=== PATIENT | male | born 1995 | race Hispanic/Latino ===

== ENCOUNTER 2017-09-11 09:29 | Observation (INO) | payer SELFPAY ==
[~2017-09-11] VITALS: Ht 182.9 cm; Wt 121.1 kg
[2017-09-11] MEDS ORDERED: SODIUM CHLORIDE 0.9% 1000ML 1,000 ML IV STA (09:57)
[2017-09-11] MEDS ORDERED: SODIUM CHLORIDE 0.9% 1000ML 1,000 ML IV SCH ×2 (12:13→12:15)
[2017-09-11] MEDS ORDERED: SODIUM CHLORIDE FLUSH 10 ML SYR INJ PRN (12:15)
[2017-09-11] MEDS ORDERED: PIPER-TAZ 3.375 GM 50 ML IV ONE (12:15)
[2017-09-11] MEDS ORDERED: ONDANSETRON HCL 4 MG ORAL DISINTEGRATING TAB PO PRN (12:30)
[2017-09-11] MEDS ORDERED: ACETAMINOPHEN 325 MG TAB PO ONE (12:30)
[2017-09-11 13:20] VITALS: BP 144/65
[2017-09-11 14:58] VITALS: BP 144/65
[2017-09-11] MEDS ORDERED: DEXTROSE 5%/LACTATED RINGERS 1,000 ML IV ONE (15:00)
[2017-09-11] MEDS ORDERED: HYDROMORPHONE 1MG/1ML INJ IV PRN (15:00)
[2017-09-11] MEDS ORDERED: HYDROMORPHONE 2MG/ML INJ IV PRN (15:15)
[2017-09-11 15:25] VITALS: BP 128/69
[2017-09-11 17:08] VITALS: BP 128/69
[2017-09-11 18:18] LABS: BASOPHILS % 0.2 % (0.0-1.0); EOSINOPHILS # (AUTO) 0.1 (0.0-0.4); EOSINOPHILS % 0.8 % (0.0-6.0); HEMATOCRIT 40.2 % (38.2-49.6); HEMOGLOBIN 13.7 g/dL (14.0-18.0); LYMPHOCYTES # (AUTO) 2.2 (1.0-3.2); LYMPHOCYTES % 25.1 % (18.0-39.1); MEAN CORPUSCULAR HEMOGLOBIN 29.7 pg (28-32); MEAN CORPUSCULAR HGB CONC 34.1 g/dL (31-35); MONOCYTES # (AUTO) 0.6 (0.2-0.8); MONOCYTES % 7.1 % (4.4-11.3); NEUTROPHILS # (AUTO) 5.9 (2.1-6.9); NEUTROPHILS % 66.7 % (38.7-80.0); PLATELET COUNT 204 x10e3/uL (140-360); RED BLOOD COUNT 4.62 x10e6/uL (4.3-5.7); RED CELL DISTRIBUTION WIDTH 11.9 % (11.7-14.4)
[2017-09-11 19:43] LABS: LYMPHOCYTES % (MANUAL) 18 % (19-48); MONOCYTES % (MANUAL) 3 % (3.4-9.0); NEUTROPHILS % (MANUAL) 76 % (40-74); PLATELET ESTIMATE ADEQUATE; PLATELET MORPHOLOGY COMMENT NORMAL; RBC MORPHOLOGY COMMENT NORMAL
[2017-09-11 20:00] VITALS: BP 130/60
[2017-09-11] MEDS ORDERED: ACETAMINOPHEN 325 MG TAB PO PRN (21:00)
[2017-09-11] MEDS ORDERED: KETOROLAC TROMETHAMINE 30 MG/ML VIAL IV PRN (21:00)
[2017-09-12] VITALS: BP 130/60
[2017-09-12 00:30] VITALS: BP 125/78
[2017-09-12 04:00] VITALS: BP 138/79
[2017-09-12 07:38] VITALS: BP 114/80
[2017-09-12] MEDS ORDERED: CEFTRIAXONE SOD 1 GM VIAL IV ONE ×2 (08:15→09:00)
[2017-09-12 11:39] VITALS: BP 128/65
[2017-09-12 11:42] VITALS: BP 128/65
== END 2017-09-12 15:00 | disposition home or self-care (01) ==
LOC: FSED 09:29 → EDBEDREQ 12:41 → FSED 12:59 → IMCU 13:13
PROVIDERS: ADMIT Surgery; ATTEND Surgery
DX: E86.0 Dehydration (principal); R11.2 Nausea with vomiting, unspecified; R10.31 Right lower quadrant pain; R19.7 Diarrhea, unspecified
CPT/HCPCS: G0378 ×2; J0696; J1885; 74177; 80053; 81003; 85025; 99284; J2543; J7030; J7120